=== PATIENT | female | born 1970 | race African-American/Black ===

== ENCOUNTER 2017-01-06 05:41 | Observation (INO) ==
--- NOTE | 2016-12-28 14:45 | EKG Report ---
Stationary ECG Study [facility] Test Date: 12/28/2016 2:46:30 PM Pat Name: QUYNH RANDALL Department: Room: Gender: F [employer]: POONAM [birth year] : 1970 Requested by: Omer Abad Order Number: [id number] Reading MD: BRIANA MELGAR Intervals [place] Rate: 86 P: 78 ME: 168 QRS: 75 QRSD: 94 T: 0 QT: 349 QTc: 393 Interpretive Statements SINUS RHYTHM NONSPECIFIC T-WAVE ABNORMALITY Electronically Signed On 12-29-16 05:24:55 CDT by BRIANA MELGAR [email or web address]
[2016-12-28 14:57] LABS: Basophils # 0.1 10*3/uL (0.0-0.2); Basophils % 0.6 % (0.0-0.8); Eosinophils # 0.1 10*3/uL (0.0-0.87); Eosinophils % 0.9 % (0.00-10.9); Hematocrit 38.6 VOL% (35.7-47.0); Hemoglobin 13.7 GM/DL (12.0-16.0); Immature Granulocytes % 0.4 %; Immature Granulocytes Absolute 0.05 #; Lymphocytes # 3.4 10*3/uL (1.4-4.0); Lymphocytes % 27.1 % (21.3-54.2); Mean Corpuscular HGB Conc 35.5 GM/DL (32-36); Mean Corpuscular Hemoglobin 28 PG (27-34); Mean Corpuscular Volume 78.5 FL (87-102); Mean Platelet Volume 9.6 FL (9.6-12.0); Monocytes % 7.7 % (1.7-12.7); Neutrophils % 63.3 % (38.7-73.9); Platelet Count 524 T/CUMM (130-400); Red Blood Count 4.92 MC/CUMM (3.8-5.5); Red Cell Distribution Width 13.7 % (9.3-17.3); White Blood Count 12.7 T/CUMM (4-12)
[2016-12-28 15:35] LABS: Calcium 9.7 MG/DL (8.5-10.1); Free T4 (Free Thyroxine) 1.3 NG/DL (0.76-1.46); Osmolality,Calculated 277.4 MOS/KG (273-304); Thyroid Stimulating Hormone 0.393 uIU/ml (0.358-3.74)
--- NOTE | 2016-12-28 15:53 | XRay Report ---
XR chest 2V Indication: Preop Comparison: Chest x-ray 08/13/2015 Technique: PA and lateral chest x-ray was performed. Findings: Heart size, mediastinal contour, and hilar structures demonstrate no significant abnormalities. The lung parenchyma is clear. Bones and soft tissues demonstrate no significant abnormalities. Impression: 1. No active cardiopulmonary disease. 12/28/2016 3:50 PM PROCEDURE INTERPRETED AT [facility] DEPARTMENT OF RADIOLOGY Final Report Signed by: Dr. Orestes Young
[2017-01-06] MEDS ORDERED: LACTATED RINGERS 1,000 ML IV SCH ×2 (06:30→10:00)
[2017-01-06] MEDS ORDERED: BUPIVACAINE 0.25% 50 ML VIAL ONE (06:44)
[2017-01-06] MEDS ORDERED: LIDOCAINE 1%/EPI INJ 20 ML VIAL ONE (06:44)
[2017-01-06] MEDS ORDERED: TISSUE ADHESIVE 1 EACH APPLICATOR TOP ONE (06:45)
[2017-01-06] MEDS ORDERED: LIDOCAINE 1% 5 ML VIAL ONE (07:07)
[2017-01-06] MEDS ORDERED: PROPOFOL 200 MG/20 ML VIAL IV ONE ×2 (07:07→09:46)
[2017-01-06] MEDS ORDERED: ONDANSETRON 4 MG/2 ML VIAL ONE ×3 (07:07→09:53)
[2017-01-06] MEDS ORDERED: ROCURONIUM 100 MG/10 ML VIAL IV ONE ×2 (07:07→09:47)
[2017-01-06] MEDS ORDERED: KETOROLAC 30 MG/1 ML VIAL ONE ×2 (07:07→09:47)
[2017-01-06] MEDS ORDERED: GLYCOPYRROLATE 0.4 MG/2 ML VIAL ONE ×2 (07:07→09:47)
[2017-01-06] MEDS ORDERED: DEXAMETHASONE 10 MG/1 ML VIAL ONE (07:07)
[2017-01-06] MEDS ORDERED: NEOSTIGMINE 10 MG/10 ML VIAL ONE ×2 (07:07→09:47)
[2017-01-06] MEDS ORDERED: MICROFIBRILLAR COLLAGEN POWDER 1 GM CAN TOP ONE (08:23)
--- NOTE | 2017-01-06 09:16 | Operative Note ---
Date of procedure: 01/06/17 Pre-op diagnosis: Large multinodular goiter Post-op diagnosis: same Procedure: Right thyroid lobectomy (22) Findings and technique: After informed consent was obtained patient was brought the operating room and placed in supine position. After successful induction with general anesthesia the patient's neck was prepped and draped in usual sterile fashion. Local anesthesia was infiltrated and a transverse incision made through the skin and subcutaneous tissue and platysma. Subplatysmal flaps were raised superiorly to the thyroid cartilage and inferior the sternal notch. Strap muscles were divided vertically in the midline exposing the enlarged thyroid gland just beneath the strap muscles. Dissection was carried to the right and I stayed right on the capsule of the thyroid which had larger vessels on the capsule which I divided along the capsule with the LigaSure device. I divided the middle thyroid vein and retracted the thyroid gland medially. The gland was markedly enlarged on the right and extended well up into the neck. I dissected up the superior pole and divided the superior pole vessels right on the capsule of the superior pole mobilizing it inferiorly and medially as well. Attachments along the inferior aspect of this large mass which extended to the level of the clavicle were divided on the thyroid capsule as well and this provided for more mobility of the gland. As I dissected posterior medially identified branches of the inferior thyroid artery branching over the posterior aspect of the gland as well as both parathyroid glands. Go back as I retracted this further medially I then carefully dissected beneath the inferior thyroid artery was able to identify the recurrent laryngeal nerve. I divided the thyroid gland off of the trachea leaving a cuff of thyroid gland near the recurrent laryngeal nerve to avoid or minimize any chance of injury to the nerve. I did not feel that I had placed undue traction on the nerve. The dissection was carried across the trachea where it was still a mass and I could not identify this. This was all enlarged and went across the midline and after it was well across the midline had a lobulated aided appearance which I freed up in this basically provided and is most well to the left of the midline which I transected with the LigaSure device. After this was removed there was really very little residual gland left and the remaining left thyroid lobe had a somewhat normal appearance. I suspect that most of what the patient and felt and what we had seen on ultrasound on the left have been the right sided goiter which had grown across the anterior aspect of the trachea and replaced a large part of the left thyroid bed. I did not do a left lobectomy in light of this. I felt that especially with the difficulty of dissection on the right that this would increase her risk of recurrent nerve complications or thyroid parathyroid complications. I felt that she had removal of the symptomatic goiter at this point. The neck was irrigated and inspected for about 15 minutes and was noted to be completely hemostatic at the time of closure. Sponge counts were correct at the time of closure. Strap muscles were closed with interrupted 3-0 Vicryl suture in the platysma with interrupted 3-0 Vicryl suture. Skin was closed with a running 4-0 Vicryl subcuticular suture and tissue adhesive. Pathology on frozen section appeared benign. This was a much more difficult procedure than usual and the large size of the right lobe which extended across the midline to the left essentially doubled the usual operative time and greatly added to the complexity of the procedure. Anesthesia: GETA, local Surgeon / Physician: Omer Abad III. Estimated blood loss: other (50 mL) Specimens: other (Right thyroid lobe) Condition: stable Disposition: PACU Results - Labs CBC & BMP: 12/28/16 14:52 12/28/16 14:52 Discharge Plan - Discharge Medications No Action Amlodipine Besylate 2.5 mg PO DAILY Levothyroxine Tab [Synthroid Tab] 100 mcg PO DAILY Triamterene/Hctz 37.5-25 Tab [Maxzide 37.5-25] 1 tablet PO DAILY Cholecalciferol (Vitamin D3) [Vitamin D3] 1,000 unit PO DAILY Biotin 1,000 mcg PO DAILY Esomeprazole Magnesium [Nexium] 20 mg PO DAILY Cetirizine Tab [ZyrTEC Tab] 10 mg PO DAILY PRN PRN Reason: Allergy Symptoms - Follow Up or Referral - Forms/Instructions
[2017-01-06] MEDS ORDERED: DESFLURANE 1 UNIT/15 MINUTE INH ONE (09:46)
[2017-01-06] MEDS ORDERED: fentaNYL 100 MCG/2 ML VIAL ONE ×2 (09:46)
[2017-01-06] MEDS ORDERED: MIDAZOLAM 2 MG/2 ML VIAL ONE (09:46)
[2017-01-06] MEDS ORDERED: ONDANSETRON 4 MG/2 ML VIAL IV PRN ×2 (09:47→14:11)
[2017-01-06] MEDS ORDERED: ACETAMINOPHEN 1,000 MG/100 ML VIAL IV ONE (09:47)
[2017-01-06] MEDS ORDERED: LACTATED RINGERS 1,000 ML IV ONE (09:47)
[2017-01-06] MEDS ORDERED: HYDROmorphone 2 MG/1 ML VIAL IV PRN ×3 (09:47→14:11)
[2017-01-06] MEDS ORDERED: HYDROmorphone 2 MG/1 ML VIAL ONE (09:53)
[2017-01-06] MEDS ORDERED: KETOROLAC 15 MG/1 ML VIAL IV PRN (14:11)
[2017-01-06] MEDS ORDERED: ACETAMINOPHEN 325 MG TABLET PO PRN (14:11)
[2017-01-06] MEDS ORDERED: ALBUTEROL/IPRATROPIUM 3 ML NEB RESP TX PRN (14:11)
[2017-01-06] MEDS ORDERED: PROMETHAZINE 25 MG/1 ML VIAL IM PRN (14:11)
[2017-01-06] MEDS ORDERED: BISACODYL 5 MG TABLET PO PRN (14:11)
[2017-01-06] MEDS ORDERED: CETIRIZINE 10 MG TABLET PO PRN (14:18)
--- NOTE | 2017-01-06 14:22 | Anesthesia Post-Op ---
Anesthesia Post OP - Post Ansesthetic Evaluation Patient seen in post op: Yes Resp: within normal limits CV: within normal limits Mental: within normal limits Temp: within normal limits P[place]rm[place]: within normal limits Nausea and Vomiting: within normal limits Pain: within normal limits
[2017-01-06] MEDS: TRIAMTERENE/HCTZ 37.5-25 MG TABLET PO SCH (15:18)
[2017-01-06] MEDS: LEVOTHYROXINE 100 MCG TABLET PO SCH (15:18)
[2017-01-06] MEDS: PANTOPRAZOLE 40 MG TABLET PO SCH (15:18)
[2017-01-06] MEDS: amLODIPine 2.5 MG TABLET PO SCH (15:19)
[2017-01-06] MEDS: LACTATED RINGERS 1,000 ML IV SCH (15:19)
--- NOTE | 2017-01-06 17:33 | Event Note ---
She feels well. We watched her for a while in recovery room because of the possibility of a small hematoma developing. This really looks normal to me now. She has a normal voice. She has no difficulty breathing and feels well. I see no evidence of hematoma and only see mild soft tissue swelling at this point.
[2017-01-07] MEDS: LACTATED RINGERS 1,000 ML IV SCH ×2 (01:04→08:31)
[2017-01-07 05:18] LABS: Basophils % 0.2 % (0.0-0.8); Eosinophils % 0.1 % (0.00-10.9); Hematocrit 33.9 VOL% (35.7-47.0); Hemoglobin 12.1 GM/DL (12.0-16.0); Immature Granulocytes % 0.5 %; Lymphocytes # 2.6 10*3/uL (1.4-4.0); Lymphocytes % 13.8 % (21.3-54.2); Mean Corpuscular HGB Conc 35.7 GM/DL (32-36); Mean Corpuscular Hemoglobin 28 PG (27-34); Mean Corpuscular Volume 77.9 FL (87-102); Monocytes # 1.4 10*3/uL (0.11-0.8); Monocytes % 7.5 % (1.7-12.7); Neutrophils # 14.7 10*3/uL (1.4-7.4); Neutrophils % 77.9 % (38.7-73.9); Platelet Count 496 T/CUMM (130-400); Red Blood Count 4.35 MC/CUMM (3.8-5.5); Red Cell Distribution Width 13.3 % (9.3-17.3); White Blood Count 18.9 T/CUMM (4-12)
[2017-01-07 05:42] LABS: Calcium 9.5 MG/DL (8.5-10.1); Osmolality,Calculated 277.4 MOS/KG (273-304)
[2017-01-07] MEDS: LEVOTHYROXINE 100 MCG TABLET PO SCH (06:29)
--- NOTE | 2017-01-07 07:02 | Event Note ---
She feels well. Her voice is normal. Her neck looks okay with no significant hematoma or swelling. Wound looks good and I think she should be fine for discharge. He calcium is normal. We will see her back in the clinic in 1 week.
[2017-01-07] MEDS: PANTOPRAZOLE 40 MG TABLET PO SCH (08:31)
[2017-01-07] MEDS: amLODIPine 2.5 MG TABLET PO SCH (08:31)
[2017-01-07] MEDS: TRIAMTERENE/HCTZ 37.5-25 MG TABLET PO SCH (08:31)
--- NOTE | 2017-01-07 10:25 | Discharge Summary ---
Hospital Course - Hospital Course Hospital Course: 46-year-old -[place] female with history of hypertension and obstructive sleep apnea followed by Dr. Pollo GERMAIN in clinic with a symptomatic multinodular goiter. She was admitted and taken to the OR on 2016 for a right thyroid lobectomy. Postoperatively patient has done well. Her voice is normal in length and looks okay with no significant hematoma or swelling. Her calcium levels are normal and she is tolerating a diet. She will be discharged home with follow-up with Dr. Pollo GERMAIN. Care coordination, chart review, and completed discharge paperwork took approximately 32 minutes. - Time spent with patient Time with patient DS: Greater than 30 minutes Discharge Plan - Discharge Data Disposition: Disch To Home/Self Care Condition at Discharge: Stable Discharge Diet: heart healthy Activity: no lifting Hygiene: may shower Driving: not until seen by doctor Contact your physician if you experience:: fever over 101, Shortness of breath, Bleeding Wound / Dressing Care Instructions: Okay to shower daily with mild soap and water, pat dry, okay to leave up to the air - Discharge Medications New HYDROcodone/ACETAMIN 7.5-325 [[place] 7.5-325] 1 tablet PO Q4H PRN #30 tablet PRN Reason: Pain Moderate (4-7) Continue Amlodipine Besylate 2.5 mg PO DAILY Levothyroxine Tab [Synthroid Tab] 100 mcg PO DAILY Triamterene/Hctz 37.5-25 Tab [Maxzide 37.5-25] 1 tablet PO DAILY Cholecalciferol (Vitamin D3) [Vitamin D3] 1,000 unit PO DAILY Biotin 1,000 mcg PO DAILY Esomeprazole Magnesium [Nexium] 20 mg PO DAILY Cetirizine Tab [ZyrTEC Tab] 10 mg PO DAILY PRN PRN Reason: Allergy Symptoms - Follow Up or Referral Follow Up: Omer Abad III., MD [Physician] - 1 Week - Forms/Instructions Exam - Constitutional Vitals: Period Temp Pulse Resp BP Sys/Dasilva Pulse Ox Last 24 Hr 97.0 F-98.3 F 63-108 14-20 120-149/65-85 92-99 Discharge Results Labs on day of discharge: Labs from last 24 hours 01/07/17 01/07/17 04:44 04:44 WBC 18.9 H RBC 4.35 Hgb 12.1 Hct 33.9 L MCV 77.9 L MCH 28 MCHC 35.7 RDW 13.3 Plt Count 496 H MPV 10.0 Neut % (Auto) 77.9 H Lymph % (Auto) 13.8 L [place] % (Auto) 7.5 Eos % (Auto) 0.1 Baso % (Auto) 0.2 Neut # (Auto) 14.7 H Lymph # (Auto) 2.6 [place] # (Auto) 1.4 H Eos # (Auto) 0.0 Baso # (Auto) 0.0 Immature Gran % 0.5 Nucleated RBC % 0.0 Immature Gran # 0.10 Nucleated RBCs # 0.00 Immature Plt Fraction 0.0 Sodium 140 Potassium 4.0 Chloride 103 Carbon Dioxide 29 Anion Gap 12.0 BUN 11 Creatinine 0.70 GFR Calculation 156 BUN/Creatinine Ratio 15.00 Glucose 106 Calculated Osmolality 277.4 Calcium 9.5 DS: Provider Date of admission: 01/06/17 Primary care physician: Renata Foy M.D. Attending physician on admission: pollo III Consults: 01/06/17 14:49 Consult to Pastoral Services [CONS] Routine Comment: Pastoral Screen: Request Yard Clerk Visit Pastoral Screen Source of Request: Patient Discharging clinician: MONICA Quintana Expected date of discharge: 01/07/17
[2017-01-07 11:11] VITALS: BP 140/72
--- NOTE | 2017-01-10 13:24 | Pathology Report from [facility] ---
[facility] ACCESSION # : [id number] PATIENT NAME : Quynh Artis ORDERING DR : SALINA GUZMÁN III, MD CLINICAL HX: RT thyroid multiple nodule goiter, thyroid enlargment POST-OP DX: Same SPECIMEN INFO: RT thyroid lobe GROSS DESCRIPTION: The specimen is received fresh for frozen section labeled QUYNH ARTIS/RT THYROID consists of the right thyroid lobe weighing 100.0 gm and measuring 10.0 x 6.3 x 3.8 cm. Sectioning reveal numerous semisolid cystic nodules measuring up to 4.[address] x [address] [employer] [address] [employer] sections submitted for frozen section in cassettes FS A and FS B. Permanent section submitted in cassettes C-I. DIAGNOSIS FOR QUYNH ARTIS: RIGHT THYROID LOBECTOMY: Multinodular goiter. COLLECTED DATE: 01/06/2017 [facility] REPORT DATE: 01/07/2017 ELECTRONICALLY SIGNED BY: Melissa Coombs M.D. 01/07/2017 - 9:51:35 [facility]
== END 2017-01-07 11:56 | disposition home or self-care (01) ==
LOC: INTOOBSV 05:41 → N.SDSINP 05:41 → N.OR 05:41 → N.SDSINP 05:43 → EDSTATUS 07:30 → EDSDCBED 12:48 → N.3E 12:48 → N.OR 01-07 11:56 → UNDODEPSDC 01-10 10:45 → N.SDSINP 01-10 10:48
PROVIDERS: ADMIT Surgery; ATTEND Surgery